=== PATIENT | male | born 1985 | race Hispanic/Latino ===

== ENCOUNTER 2021-06-04 13:22 | Emergency (ER) | payer OTHER ==
[~2021-06-04] VITALS: Ht 152.4 cm; Wt 100.0 kg
[2021-06-04 14:05] VITALS: BP 136/86
[2021-06-04 14:06] VITALS: BP 136/76
[2021-06-04] MEDS ORDERED: MOTRIN800 MG PO (15:26)
== END 2021-06-04 15:37 | disposition home or self-care (01) | DRG 563 ==
LOC: ED 13:22
DX: S46.911A Strain of unspecified muscle, fascia and tendon at shoulder and upper arm level, right arm, initial encounter (principal); X50.0XXA Overexertion from strenuous movement or load, initial encounter; Y93.89 Activity, other specified; Y92.73 Farm field as the place of occurrence of the external cause; Y99.0 Civilian activity done for income or pay